=== PATIENT | female | born 1985 | race Caucasian/White ===

== ENCOUNTER 2022-12-31 08:48 | Outpatient (CLI) | payer OTHER | END 2022-12-31 11:53 | disposition home or self-care (01) | LOC: NST 08:48 | PROVIDERS: ATTEND Obstetrics & Gynecology Gynecology | DX: O09.93 Supervision of high risk pregnancy, unspecified, third trimester (principal) ==

== ENCOUNTER 2023-01-07 10:21 | Inpatient (IN) | payer OTHER ==
[~2023-01-07] VITALS: Ht 152.4 cm; Wt 1.8 kg
[2023-01-07 11:25] LABS: HEMOGLOBIN 11.8 g/dL (12.0-15.00); MEAN CELL VOLUME 86.8 fL (80.00-100.00); MEAN CORPUSCULAR HEMOGLOBIN 28.5 pg (27.00-32.0); MEAN CORPUSCULAR HGB CONC 32.8 g/dl (32.0-36.0); PLATELET COUNT 254 K/uL (150-450); RED BLOOD COUNT 4.15 M/uL (4.00-6.00); RED CELL DISTRIBUTION WIDTH 14.3 % (11.5-14.5)
[2023-01-07] MEDS ORDERED: GAVISCON LIQUI355 ML PO (11:29)
[2023-01-07] MEDS ORDERED: PRENATABS RX T1 EACH PO (11:29)
[2023-01-07] MEDS ORDERED: ASA-BUTALB-CAF1 EACH PO (11:30)
[2023-01-07] MEDS ORDERED: LABETALOL HCL200 MG PO (11:30)
[2023-01-07] MEDS ORDERED: ADULT LOW DOSE81 M1 PO (11:31)
[2023-01-07 22:30] LABS: HEMATOCRIT 35.5 % (36.0-45.00); HEMOGLOBIN 11.4 g/dL (12.0-15.00); MEAN CELL VOLUME 86.5 fL (80.00-100.00); MEAN CORPUSCULAR HEMOGLOBIN 27.9 pg (27.00-32.0); MEAN CORPUSCULAR HGB CONC 32.3 g/dl (32.0-36.0); PLATELET COUNT 217 K/uL (150-450); RED CELL DISTRIBUTION WIDTH 14.4 % (11.5-14.5)
[2023-01-08 08:09] LABS: HEMATOCRIT 33.4 % (36.0-45.00); HEMOGLOBIN 11.3 g/dL (12.0-15.00); MEAN CORPUSCULAR HEMOGLOBIN 29.2 pg (27.00-32.0); PLATELET COUNT 230 K/uL (150-450); RED BLOOD COUNT 3.88 M/uL (4.00-6.00); RED CELL DISTRIBUTION WIDTH 14.3 % (11.5-14.5)
[2023-01-10 10:05] LABS: MEAN CELL VOLUME 88.8 fL (80.00-100.00); MEAN CORPUSCULAR HEMOGLOBIN 28.7 pg (27.00-32.0); MEAN CORPUSCULAR HGB CONC 32.3 g/dl (32.0-36.0); PLATELET COUNT 223 K/uL (150-450); RED CELL DISTRIBUTION WIDTH 14.7 % (11.5-14.5)
[2023-01-12 06:29] LABS: HEMOGLOBIN 10.1 g/dL (12.0-15.00); MEAN CELL VOLUME 88.2 fL (80.00-100.00); MEAN CORPUSCULAR HEMOGLOBIN 28.7 pg (27.00-32.0); MEAN CORPUSCULAR HGB CONC 32.5 g/dl (32.0-36.0); PLATELET COUNT 260 K/uL (150-450); RED BLOOD COUNT 3.52 M/uL (4.00-6.00); RED CELL DISTRIBUTION WIDTH 14.7 % (11.5-14.5)
== END 2023-01-12 10:20 | disposition home or self-care (01) | DRG 788 ==
LOC: LDR 10:21 → OB/GYN 10:21 → O/R 17:15 → OB/GYN 17:47
PROVIDERS: Obstetrics & Gynecology; Obstetrics & Gynecology Gynecology; Obstetrics & Gynecology Maternal & Fetal Medicine; ADMIT Obstetrics & Gynecology; ATTEND Obstetrics & Gynecology
PROC: 4A1HXCZ Monitoring of Products of Conception, Cardiac Rate, External Approach (ICD-10-PCS; 2023-01-07)
PROC: 10D00Z1 Extraction of Products of Conception, Low, Open Approach (ICD-10-PCS; principal; 2023-01-07 16:00)
DX: O13.4 Gestational [pregnancy-induced] hypertension without significant proteinuria, complicating childbirth (principal); O10.02 Pre-existing essential hypertension complicating childbirth; O32.1XX0 Maternal care for breech presentation, not applicable or unspecified; O60.14X0 Preterm labor third trimester with preterm delivery third trimester, not applicable or unspecified; Z3A.36 36 weeks gestation of pregnancy; Z37.0 Single live birth